=== PATIENT | male | born 1970 | race Caucasian/White ===

== ENCOUNTER 2017-12-30 08:05 | Inpatient (IN) | payer BC ==
[2017-12-30] MEDS ORDERED: MELATONIN 3 MG TAB PO PRN (08:52)
[2017-12-30] MEDS ORDERED: ONDANSETRON 4 MG/2 ML VIAL IVP PRN (08:52)
[2017-12-30] MEDS ORDERED: ACETAMINOPHEN 325 MG TAB PO PRN (08:52)
--- NOTE | 2017-12-30 09:08 | PDGENHP ---
History and Physical History and Physical: CC: Worsening left hip pain, sent by his primary care physician for assessment of abdominal mass HISTORY: This patient has not seen a doctor for some years and is generally healthy but presented to his primary care yesterday with complaint of worsening left hip and leg pain. There were some abnormalities found on examination and blood testing and is sent to the hospital now from primary care for further assessment and treatment. Other than hypertension since childhood this patient has been really quite healthy and takes no medicines. Around 2 years ago he started having some intermittent pain from his posterior left buttock that would go down the posterior leg occasionally below the knee to the upper calf, described as either an ache or a sharp pain worsened by sitting and worsened by certain movements. There was never any weakness or paresthesia or loss of sensation. He had no evaluation for this. Over the last 2 months he has had a worsening of this same pain and it has occasionally been associated with a numb sensation on the medial left thigh. In addition, he has developed a more steady and more severe pain in the anterior left hip/inguinal area. Has become increasingly difficult for him to walk any actually was using crutches when he went in to see his primary care yesterday. Additionally he tells me that he has had increasing difficulty urinating, sometimes having to push on his bladder to get urine to flow. He notes no discomfort passing urine, no discomfort in the bladder, and no blood in the urine. There is no history of kidney stones, prostate or bladder issues , or urologic instrumentation or catheterization Regarding his blood pressures, he says he was 1st noted to be hypertensive as a young child approximately age 5. He has not really followed physicians for this. He does not ever recall having treatment recommended for this but has not had his blood pressure checked in quite some time. He does say that whenever it has been checked it is usually high. Both parents are hypertensive. He does not use decongestants or stimulants. Formally he was able drinker of 1 bottle of wine daily but for a good while now has been using no alcohol. He states he has had no weight loss or gain, no fever symptoms, no skin sores or lesions, no oral ulcerations, no joint pains other than his hip and buttock area as above. 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 I have reviewed the list and ordered appropriate medicines. PHYSICAL EXAMINATION: Vital Signs: 190/100, pulse 102, normal respirations and temperature Examination: General: alert, oriented, good mentation, relaxed Skin: warm, dry, good color, no rash; I do not see any sign of skin cancers HEENT: normal Neck: no mass or jvd, no goiter Resps: relaxed Lungs: clear breath sounds Heart: Slightly tachycardic, regular, no murmur Abdomen: soft, nondistended, nontender, there is a large firm mass in the right lower quadrant of the abdomen which is nontender approximately 15 cm diameter which is visible at rest in easily palpable; there is a large, somewhat soft mass like palpable tissue at L inguinal area, nontender Genitalia all normal Upper Extremities: normal Lower Extremities: no edema, warm No Bleeding or bruising Neurologic: normal speech/language, 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 The mass palpable in the right lower quadrant was his bladder which is very distended with urine. There is also howeever a very large left pelvic mass appears to possibly be coming from the left iliac bone. This mass is fairly well-circumscribed other than where it has destroyed and appears contiguous with the left iliac bone. It protrudes up into the pelvis on the left pushes the bladder far to the right. It also protrudes underneath iliac ligament into the upper thigh where it compresses soft tissues to a large degree. A significant portion of the central part of the left iliac bone including the acetabular are completely destroyed by this mass. There is no evidence of other skeletal lesions, metastatic tumors, significant adenopathy. Bilateral hydronephrosis is present. I had the nurse do a bedside bladder ultrasound for which I was present. His bladder is extremely distended and accounts for the mass in his right lower quadrant of abdomen with a recorded volume 1170 cc. A Walker catheter was placed with immediate return of a very large volume greater than 1 L of clear yellow urine with some debris in it. There was subsequently some further drainage of clear yellow urine but he is now draining opaque gross hematuria. No clots were seen so far in the catheter is draining. I also ordered Doppler ultrasound of the left leg and I reviewed images with Dr. Celso Melissa. The patient does have evidence of DVT in the left leg. 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 * probable subacute urinary retention leading to bilateral hydronephrosis and renal failure * pain of cancer and limited ambulation due to the bone destruction mentioned above * normocytic anemia is likely due at least in large part to the renal failure but could have cancer nutritional causes to * the metabolic acidosis due to renal failure * gross hematuria could be due to sudden decompression of bladder, or other could be invasion of tumor mass into bladder * edema of left leg with DVT in left leg and probably also venous and/or lymphatic compression by mass * uncontrolled hypertension * History of hypertension since childhood, but not followed and it is entirely unclear what the course of the blood pressure has been in recent times * May be all chronic hypertension, but may be hypertension aggravated by his obstructive uropathy and renal failure and by his pain This is a very complex case anatomically. There is obvious destruction of bone in the left iliac. The pelvic ring appears intact but is at risk for becoming un intact. He has nothing for his femoral head to stand on at this time. In addition there is numbness in his medial left thigh indicating neurologic compromise, at least venous and lymphatic obstruction of the left leg with edema of the left leg and DVT in the left leg, with high risk for developing arterial compromise as well. He will need a surgical approach to his problems but this is beyond the complexity of what can be managed at this hospital, and should be referred to a center that specializes in this type of tumor and this type of anatomic complexity. I reviewed all of the above in great detail with the patient and his brother at the bedside. I have answered all their questions at this time. PLANS: * Inpatient admission hospital * Irrigation Walker catheter for the gross hematuria * Begin IV heparin for his DVT * Pain management * Management of his blood pressure with antihypertensives * Follow his renal function closely * IV hydration * Will review his case tonight with Dr. Christina Parson in with on-call orthopedist regarding appropriate referral for definitive management surgically and with medical treatment of his tumor I have reviewed the patient's case in detail with Dr. Conor Rehman and Conor Baeza I have reviewed the patient's past medical records as part of this assessment, including outpatient clinic records and laboratory data
[2017-12-30 12:55] LABS: PLATELET COUNT 172 10^3/uL (150-400)
--- NOTE | 2017-12-30 16:58 | ASMTCMCOM ---
CM Note CM Note Notes: Pt admitted with a lower abdominal/pelvic mass. He has been in a lot of pain and has been using crutches, he lives independently and works at [employer]. Dc needs are TBD DC Plan: TBD Date Signed: 12/30/2017 04:57 PM Electronically Signed By:Judy Cisneros RN
[2017-12-30] MEDS ORDERED: HEPARIN 10,000 UNIT/10 ML MDV (1,000 UNIT/ML) IVP PRN (18:55)
[2017-12-30] MEDS ORDERED: ZOLPIDEM TARTRATE 5 MG TAB PO PRN (19:09)
[2017-12-30 20:36] LABS: PLATELET COUNT 183 10^3/uL (150-400)
[2017-12-30] MEDS ORDERED: LORazepam 2 MG/ML INJ IVP ONE (20:36)
[2017-12-30] MEDS ORDERED: LIDOCAINE 2% JELLY 20 ML (UROJECT) UR ONE (20:45)
[2017-12-30 20:46] LABS: INR 1.15 (0.83-1.16); PROTIME(PATIENT) 14.9 SEC (12.0-15.0)
[2017-12-30] MEDS: oxyCODONE IR 5 MG TAB PO PRN (21:56)
[2017-12-30] MEDS: NS 1,000 ML IV SCH (21:57)
--- NOTE | 2017-12-30 21:58 | PDMN ---
Medical Necessity Medical necessity: Pt meets inpt criteria per MD order and MCG M-[id number], Renal Failure, 3 days. Est LOS>2MN for management of new acute renal failure, metabolic acidosis, normocytic anemia, abd/rectal mass eval, uncontrolled HTN, and worsening L hip pain requiring crutches. Pt presents w/ hip pain, HTN since admit (most recent BP 220/90), tachycardic HR 102, BUN 66, creat 3.3, H&H low at 9.8, 28.4, venous US shows LLE DVT. IV Heparin, IVF, pain control, PT eval pending, CT abd/pelvis pending, ongoing med nec inpt eval/treatment.
[2017-12-30] MEDS: HEPARIN/DEXTROSE 500 ML IV SCH (22:13)
[2017-12-31] MEDS: oxyCODONE IR 5 MG TAB PO PRN ×2 (02:41→12:37)
[2017-12-31] MEDS: NS 1,000 ML IV SCH (06:14)
--- NOTE | 2017-12-31 06:55 | CPEKG ---
Test Reason : OPEN Blood Pressure : / mmHG Vent. Rate : 096 BPM Atrial Rate : 096 BPM P-R Int : 180 ms QRS Dur : 089 ms QT Int : 345 ms P-R-T Axes : 058 057 200 degrees QTc Int : 436 ms Sinus rhythm Probable anteroseptal infarct, recent Lateral leads are also involved Confirmed by Juan Maria ([id number]) on 12/31/2017 6:55:43 AM Referred By: Confirmed By:Juan Maria
[2017-12-31] MEDS: HEPARIN/DEXTROSE 500 ML IV SCH (08:30)
[2017-12-31] MEDS ORDERED: hydrALAZINE 25 MG TAB PO ONE (09:16)
--- NOTE | 2017-12-31 10:59 | ASMTCMCOM ---
CM Note CM Note Notes: Pt is being transferred to [facility] for medical reasons. He will be going to [facility] [place], room 712-1. [facility] will be sending a Critical Care Team due to his need for continuous bladder irrigation and a Heparin drip. They will be arriving at 1:30PM. Medical records have been printed. EMTALA form is with Dr Canela. Nurse's information and Pt signature are needed. Date Signed: 12/31/2017 10:58 AM Electronically Signed By:Anupama Jimenes
[2017-12-31] MEDS ORDERED: METOPROLOL TARTRATE 50 MG TAB PO ONE (11:13)
--- NOTE | 2017-12-31 11:33 | PDDCSUM ---
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, causing destruction of left iliac bone and urinary outlet obstruction * urine retention 1170 cc requiring Walker catheterization due to above; resultant bilateral hydronephrosis * gross hematuria, may be due to Walker catheter, but would consider tumor invasion of bladder or other cause * renal failure with obstructive uropathy as most likely prominent cause, though high suspicion for underlying hypertensive nephropathy; -anemia and acidosis suggest some chronicity * deep venous thrombosis left leg * suspect peripheral nerve entrapment due to above with medial thigh numbness * pain of cancer due to findings above * severe hypertension, currently uncontrolled; patient reported history of untreated hypertension since age 5 with no recent medical evaluation or follow- up and no recent blood pressure data. Unclear if current blood pressures are his chronic baseline or if there increased by pain and anxiety of his current situation and medical conditions. CONSULTANTS: Dr. Carlotta Rehman Oncology PROCEDURES: Noncontrast CT scan of abdomen showing large left pelvic mass with multiple related complications described below Walker catheter placement, with subsequent removal and placement of an irrigation Walker catheter Ultrasound of left leg showing DVT HOSPITAL COURSE SUMMARY: This patient presented to his primary care physician with 2 months or thereabouts of worsening left hip pain increasing difficulty ambulating finally needing crutches along with slowed urine flow and needing to massage his bladder to initiate urination. In clinic there was notice of a right lower quadrant mass and a left inguinal mass. Blood tests were drawn showing anemia and renal failure. The patient was sent to the hospital for further assessment. At the time of presentation to the hospital the patient also mentioned that he was starting to notice some numbness on the medial side of the left thigh. 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 He was quite hypertensive on presentation. Otherwise healthy On examination here his vital signs showed severe hypertension and some mild intermittent tachycardia. He had a large rounded firm right lower quadrant abdominal mass which on bedside ultrasound turned out to be his bladder with 1170 CC fluid volume. There is also a rubbery consistency somewhat firm mass at the left groin which appeared to transverse under the inguinal ligament. Neither of these masses were tender, and the genitalia were normal. There is a palpable left pelvic mass on left lower quadrant exam and rectal exam. The patient had severe antalgic gait with severe pain with any attempted weight- bearing on the left leg located at the anterior left hip inguinal area. The left leg was mildly to moderately edematous from the thigh down to the foot. There is no evidence of arterial compromise and other than somewhat decreased tactile sensation of medial thigh no evidence of neurologic compromise. Otherwise fairly unremarkable initial examination. Initial blood test remarkable for creatinine 3.3 with low bicarbonate at 17 non anion gap acidosis , and normocytic hemoglobin 9.8. IV fluids were started. A Walker catheter was placed with rapid removal of greater than 1 L clear yellow urine with some yellowish debris. However approximately 20 min later he started having mild and then more prominent gross hematuria. This persisted and irrigation Walker catheter was then placed. At this time he still receiving bladder irrigation and has a slight blood tinge to the E fluent. All of this has been asymptomatic for him. He has remained with high blood pressures, and his hemoglobin has not decreased overnight. A noncontrast CT scan of the abdomen pelvis was obtained showing distention of the bladder which is shifted to the right lower quadrant and a very large left pelvic mass. This mass is either arising from or invading into the left iliac bone with destruction of most of the central portion of the left iliac bone including the entire acetabulum. Outside of that it has a moderately well circumscribed contour. It protrudes up into the pelvis pushing bowel and bladder aside. It also projects under the inguinal ligament into the upper thigh. On this noncontrast study is not possible to see the details of what is happening to the other normal structures in the upper thigh aside from compression. Ultrasound of the left leg was done and did confirm thrombus in the common femoral and femoral veins of the left leg. IV heparin was started for the DVT of the leg, and this has not worsened the urinary bleeding or caused other problems for him. This was 1st started on the evening of December 30 and the dose is still being titrated. 1st heparin level at 4:45 a.m. this morning 0.68. His hypertension remains severe having started some Norvasc last night. Given his renal dysfunction and his tachycardia, is elected at this time to add some beta-sunday with metoprolol, but he will need ongoing titration of blood pressure management. Given the story of hypertension uncontrolled and untreated since childhood, and the lack of any recent medical care or monitoring of blood pressure, is unknown whether this is his usual blood pressure was increased by the anxiety and pain of his current situation. The plan was to titrate the blood pressure somewhat slowly to avoid any rapid decreases if these are severely chronic numbers as long as he continues to resolve his renal dysfunction reasonably well and has no other acute hypertensive complications. His creatinine has improved to 2.7 today, hemoglobin stable. There have been no other complications. There been several extensive conversations with the patient and his family at the bedside about all the findings, treatment plans and other recommendations. From an anatomic standpoint his case is too complex to be managed at this hospital. He is felt to have risk of further injury with any weight-bearing and nothing to hold his femur to the pelvis, potential failure of the pelvic ring, potential arterial compromise to the left leg, and potential further neurologic injury with compromise to the left leg. He also has suspicion for sarcoma and should be seen at the Center with a medical oncology team appropriate for initial evaluation and treatment recommendations for that illness. At this point it is recommended that he be transferred to the care of Dr. Robert Ace. At [facility]. Apparently there is a bed available today and so he is to be transferred there this afternoon. The patient and family are in agreement with this plan. PENDING TEST RESULTS: None MEDICATION CHANGES: IV heparin drip has been started for treatment of DVT Oxycodone has been used intermittently for pain Ambien added for sleep Norvasc and metoprolol added for hypertension FOLLOW-UP PLAN: He is transferred today to [facility] for further assessment by oncologic surgery and Medical Oncology He is to be taken by BLS ambulance, with ongoing IV heparin drip and will have and irrigation Walker catheter in place Greater than 35 minutes bedside and care coordination time today
--- NOTE | 2017-12-31 11:34 | HOSPPROG ---
Hospitalist Progress Note Objective: Vital Signs Temp Pulse Resp BP Pulse Ox 36.4 C 84 19 200/90 H 99 12/31/17 07:17 12/31/17 07:17 12/31/17 07:17 12/31/17 10:22 12/31/17 07:17 Laboratory Results 12/31/17 04:45 12/31/17 04:45 12/30/17 12/31/17 01/01/18 06:59 06:59 06:59 Intake Total 3274 Output Total 9101 3054 Balance -3599 -3350 PT 14.9 SEC (12.0-15.0) 12/30/17 20:20 INR 1.15 (0.83-1.16) 12/30/17 20:20
--- NOTE | 2017-12-31 11:58 | PDIAF ---
- Diagnosis Diagnosis: Pelvic mass, renal failure, bladder outlet obstruction, iliac bone destruct Code Status: Full Code - Medication Management Discharge Medications: Medications to Continue on Transfer Acetaminophen [Tylenol 325mg (*)] 650 mg PO Q6 PRN tab 12/31/17 [Last Taken Unknown] Heparin/Dextrose [Heparin 50 Units/ml (Premix) (*)] 1,851 units IV CONT bag 11/10 [Last Taken Unknown] Melatonin [Melatonin 3 MG (*)] 3 mg PO HS PRN tab 12/31/17 [Last Taken Unknown] Metoprolol Tartrate [Lopressor 50 mg (*)] 50 mg PO BID tab 12/31/17 [Last Taken Unknown] Ondansetron HCl Pf [Zofran 4 mg Inj (*)] 4 mg IVP Q4 PRN vial 12/31/17 [Last Taken Unknown] Zolpidem Tartrate [Ambien 5MG (*)] 10 mg PO HS PRN tab 12/31/17 [Last Taken Unknown] amLODIPine BESYLATE [Norvasc 10 mg (*)] 10 mg PO DAILY tab 12/31/17 [Last Taken Unknown] oxyCODONE IR [Oxycodone Ir (*)] 10 mg PO Q4HRS PRN tab 12/31/17 [Last Taken Unknown] Discharge Medications: Refer to the Discharge Home Medication list for PRN reason. - Orders Diet Recommendation: sodium restricted, potassium restricted Diet Texture: Regular Texture Diet Activity/Weight Bearing Restrictions: None weight-bearing on left leg Additional Instructions: non weight bearing L leg - Follow Up Care Current Providers and Referrals: Ihsan Bills DO [Primary Care Provider] -
--- NOTE | 2017-12-31 12:52 | GCON ---
REASON FOR CONSULTATION: Pelvic mass. HISTORY: Mr. Conner is a previously healthy 47-year-old man who presented to the emergency room yesterday with increasing left hip pain. In retrospect, he has had some left hip pain for the past 2 years, which he attributed to sciatica or arthritis. He has also had some difficulty urinating. On admission , creatinine 3.[address] abdomen/pelvis demonstrated a large mass measuring approximately 20 cm in the left pelvis, appearing to involve the left superior pubic ramus as well as the left superior acetabulum. The mass contains some calcifications. The mass caused significant displacement of the bladder to the right with bladder outlet obstruction. Moderate bilateral hydronephrosis. Liver was normal on noncontrast scan. Left lower extremity Doppler demonstrated left common femoral DVT. He is on a heparin drip. PAST MEDICAL HISTORY: He has not seen a doctor in quite a long time. He reports hypertension since childhood, but has been on no medications. CURRENT OUTPATIENT MEDICATIONS: None. ALLERGIES: No known drug allergies. SOCIAL HISTORY: He is single. He lives in [place]. 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 His parents live in [place]. FAMILY HISTORY: He has 1 brother. REVIEW OF SYSTEMS: CONSTITUTIONAL: No fevers, chills, or weight loss. HEENT: No vision changes. CARDIOVASCULAR: No chest pain, palpitations, PND. He has noted some left lower extremity edema. GI: No changes in bowel habits. : As above. MUSCULOSKELETAL: As above. NEUROLOGIC: He has noted some numbness over the medial left thigh. He feels that the leg is weaker. No headaches. RESPIRATORY: No dyspnea, cough, pleurisy. PHYSICAL EXAM: VITAL SIGNS: Blood pressure 198/110, pulse 84, respirations 19 , 99% on room air. Temperature 36.4. GENERAL: Pleasant gentleman, alert, oriented. His parents are present. HEENT: No scleral icterus. CARDIOVASCULAR : Regular rate and rhythm. Diffuse edema. Mild edema in the left lower extremity. LUNGS: Clear to auscultation bilaterally. ABDOMEN: Mildly distended. There is firmness in the left groin along the pelvis. MUSCULOSKELETAL: He localizes pain to the left groin. NEUROLOGIC: Subjective decreased sensation over the medial left thigh. LABORATORY STUDIES: Yesterday, WBC 4.9, hemoglobin 10.1, platelets 183,000. BMP this morning demonstrates creatinine 2.7, down from 3.3. Normal LFTs. RADIOLOGIC STUDIES: Per HPI. No chest imaging. IMPRESSION: 1. Left pelvic mass with associated bony involvement (acetabulum, superior pubic ramus), suspicious for sarcoma (osteosarcoma, chondrosarcoma). 2. Acute renal failure due to bladder outlet obstruction. 3. Left lower extremity deep venous thrombosis due to compression from pelvic mass. 4. Anemia. Given the need for specialty orthopedic evaluation and the management of sarcoma , I spoke with Dr. Robert Ace with [facility] and arranged a transfer for Mr. Conner to [facility] for multi disciplinary sarcoma evaluation. If this is an osteosarcoma, initial chemotherapy would be appropriate. If this is a chondrosarcoma, initial surgical resection would be appropriate. I have discussed with Dr. Canela as well. We will not pursue further workup with MRI, biopsy, etc., here, as he will be promptly transferred to [facility]. /[id number]/MODL MTDD
[2017-12-31 13:03] VITALS: BP 210/90
[2017-12-31] MEDS ORDERED: METOPROLOL TARTRATE 50 MG TAB PO SCH (21:00)
== END 2017-12-31 13:49 | disposition short-term general hospital (02) | DRG 543 ==
LOC: F3E 09:57
PROVIDERS: ADMIT Internal Medicine; ATTEND Internal Medicine
PROC: 0T9B70Z Drainage of Bladder with Drainage Device, Via Natural or Artificial Opening (ICD-10-PCS; principal; 2017-12-30)
DX: C49.5 Malignant neoplasm of connective and soft tissue of pelvis (principal); I82.412 Acute embolism and thrombosis of left femoral vein; E87.2 Acidosis; R33.9 Retention of urine, unspecified; R00.0 Tachycardia, unspecified; G89.3 Neoplasm related pain (acute) (chronic); D64.9 Anemia, unspecified; R31.0 Gross hematuria; N19 Unspecified kidney failure; I12.9 Hypertensive chronic kidney disease with stage 1 through stage 4 chronic kidney disease, or unspecified chronic kidney disease; G58.9 Mononeuropathy, unspecified
CPT/HCPCS: 84154-90; 85520-90; J1644

== ENCOUNTER 2018-02-11 11:28 | Inpatient (IN) | payer BC ==
[2018-02-11] MEDS ORDERED: oxyCODONE IR 5 MG TAB PO PRN (15:53)
[2018-02-11] MEDS ORDERED: BISACODYL 10 MG SUPP PR PRN (17:33)
[2018-02-11] MEDS ORDERED: ONDANSETRON DISINTEGRATING 4 MG TAB PO PRN (17:33)
[2018-02-11] MEDS ORDERED: MAGNESIUM HYDROXIDE 30 ML UDCUP PO PRN (17:33)
--- NOTE | 2018-02-11 18:00 | GHP ---
POST ADMISSION PHYSICIAN EVALUATION AND REHABILITATION TREATMENT PLAN. DATE OF ADMISSION: 02/11/2018 DATE OF EVALUATION: 02/11/2018. TIME OF EVALUATION: 1425. REFERRING FACILITY: [facility]. Referring physician is Dr. Ace. IMPAIRMENT GROUP: [id number]. DATE OF ONSET: 01/31/2018. CONSULTING PHYSICIANS: Internal Medicine, interventional radiology, surgery, urology, and vascular surgery. REHABILITATION DIAGNOSIS: Debility, status post left hemipelvectomy. ETIOLOGIC DIAGNOSIS: Unilateral lower limb above the knee. DATE OF SURGERY: 02/02/2018. HISTORY OF PRESENT ILLNESS: This patient developed an obstructing pelvic chondrosarcoma, which caused urinary obstruction and compression of the bladder and rectum and post obstructive renal failure. He reports that his symptoms 1st began with some hip discomfort approximately a month and a half ago and an x -ray at that time showed some bony abnormality, and he was told that he would need a hip replacement eventually. Subsequently, the chondrosarcoma expanded sufficiently to push the bladder to the right and cause obstructive symptoms. Prior to surgery he had a left ureteral stent placed to help identify the ureter during the surgery and had a left nephrostomy tube placed. He had embolization of the left iliac vein on 02/01/2018, to decrease bleeding during the surgery and then on 02/02/2018, he had the left hemipelvectomy. His spermatic cord on the left was damaged in the surgery and he had a left orchiectomy as well. Postoperatively, he had a wound VAC which was discontinued. There was an epidural catheter for pain control, which he reports was accidentally lost on 02/05/2018. He failed a voiding trial on 02/07, and Walker was replaced the same day. There was concern about a neurogenic bladder. He had anemia prior to surgery and he required multiple transfusions during and after surgery. He had a history of a left leg DVT for which he had been on treatment dose Lovenox. After his hemipelvectomy, the clot had been removed and he was continued on prophylactic dose enoxaparin. There had been an inferior vena cava filter placed which was removed on 2017. He has 2 SURENDRA drains, removal of which can be done when output is less than 30 cc for each drain on 2 consecutive days. He was otherwise medically stabilized, participating in therapies and appropriate for inpatient rehabilitation. STUDIES AND LABS DURING HIS STAY: I do not have easy access to a complete list. Prior to surgery he had anemia with a hemoglobin of 8.6 and hematocrit of 26.8. Basic metabolic profile prior to surgery was overall normal. He had a slight elevation of BUN at 21, creatinine was 1.1, and estimated GFR was greater than 60. PT and INR were normal. After surgery, venous blood lactate was normal at less than 0.3. Other labs on 02/03/2018, were arterial blood gases consistent with ventilator management. On 02/04/2018, serum chemistries showed a very slightly low sodium of 135, chloride was slightly high at 109, and carbon dioxide was low at 21. There was no anion gap. Renal function was normal. CBC showed a hemoglobin of 8.4 and hematocrit of 25.6. Coagulation studies showed a slightly long protime at 17. The prothrombin time was normal at 32.2. Hepatitis B and HIV testing were negative. Most recent labs appear to be from February 09. Sodium was low at 133. He had an elevated BUN of 32 and a creatinine of 1, consistent with some dehydration. CBC showed hemoglobin of 9.8 and hematocrit of 30. Platelet count was normal. PRECAUTIONS: He is a fall risk. ACTIVE COMORBIDITIES: He has no active tier 1, tier 2 or tier 3 comorbidities. PAST MEDICAL HISTORY: 1. DVT 12/2017 with IVC filter placed 01/05/2018. 2. 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 3. Hypertension. 4. Acute kidney injury. PAST SURGICAL HISTORY: He has not had previous surgeries. PRE-HOSPITAL MEDICATIONS: I do not have a list. ADMISSION MEDICATIONS: 1. Acetaminophen 650 mg p.o. q.6 hours p.r.n. 2. Amlodipine 10 mg p.o. daily. 3. Celecoxib 200 mg p.o. twice daily. 4. Enoxaparin 40 mg subcutaneous daily. 5. Gabapentin 200 mg p.o. three times daily. 6. Hydralazine 50 mg p.o. three times daily. 7. Morphine extended release 15 mg twice daily. 8. Oxycodone 10-20 mg p.o. q.4 hours p.r.n. ALLERGIES: There are no known drug allergies. PSYCHOSOCIAL HISTORY: He is single. He lives alone in a multi level house with multiple stairs. There are 6 stairs to enter. 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 He is a nonsmoker. He has used occasional alcohol but has not had any substance abuse habits. FAMILY HISTORY: Noncontributory. REVIEW OF SYSTEMS: He reports that his pain is primarily incisional. He had discomfort after he arrived on the unit and had a dose of oxycodone. He denies fevers, chills, pain other than incisional pain, cough, dyspnea, nausea, vomiting, constipation, or diarrhea. He has a Walker in place. He denies weakness, numbness or tingling of the extremities. He denies joint pain or joint swelling. He is not aware of skin breakdown or rashes. Otherwise, a 10- point review of systems is negative. PHYSICAL EXAM: VITAL SIGNS: Blood pressure is 133/90, heart rate is 91, respiratory rate is 16, oxygen saturation is 97% on room air. Temperature is 36.6 degrees centigrade. His weight is 79.2 for a body mass index of 23.7. GENERAL: This is a well-nourished, well-developed, slightly overweight appearing man sitting up in bed dressed in street clothes, cooperative and in no acute distress. HEENT: Extraocular movements are intact. Pupils are equal , round, reactive to light. Mucous membranes are moist. Dentition is in good condition. He has an uncrowded airway, Mallampati class 2. NECK: Supple. HEART: There is a regular rate and rhythm with no murmurs, rubs, or gallops. LUNGS: Clear to auscultation bilaterally. ABDOMEN: Soft, nontender, nondistended with normoactive bowel sounds. There is a firm nodule palpable approximately 2-3 cm subcutaneous or superficial intraabdominal to the right of the umbilicus. NEUROLOGIC: He is alert and oriented x3. Cranial nerves 2-12 are grossly intact. There is no focal weakness and sensation is intact to light touch. He appears to have mild word-finding difficulties and slow processing. SKIN: There is an extensive sutured incision across the left residual hemipelvis. The anterolateral part is under a bandage which was changed today and will be changed again every other day, so it was not inspected. There is no drainage in the incision. There is very mild erythema along the incision. There is no purulence. There is a capped nephrostomy tube in the left flank, and there are 2 drains in the left abdomen with serosanguineous drainage. CURRENT LEVEL OF FUNCTION PER PREADMISSION SCREEN: He was on a regular diet. He had modified independence for grooming and for toileting. He was continent of bowel. He could transfer with a [id number] with contact guard to a walker with voice cues for safety. He could do a stand pivot transfer with cues for safe transfer technique. He was using a front-wheeled walker or forearm crutches. He may require a seating system to be able to sit in office chair upon return to work. Balance required contact guard to minimal assist when he was standing. Endurance was fair to good. He was able to ambulate 75 feet to 100 feet with a front-wheeled walker and contact guard assist with a slow nathaniel. He had 1 loss of balance noted. He was able to self correct. He needed voice cues as he attempted to mobilize prior to equipment management, which at that time were wound VAC drains, etc. He was able to ambulate 200 feet with forearm crutches and contact guard assist of 2 people. Communication was considered to be normal. Regarding cognition, he was noted to be impulsive with mobility and requiring cues for setup of equipment and environment. He was noted to have decreased insight into his impairments. On the current exam, there are no significant changes from the preadmission screen. IMPRESSION: This is a 47-year-old man who required a hemipelvectomy due to an obstructing chondrosarcoma mass in his left pelvis. He has come through the surgery remarkably well and is otherwise healthy other than hypertension. It is expected that he will improve fairly rapidly in his function towards return to home. Multiple stairs to enter the house and multiple stairs within the house are a barrier to discharge. He has clear wound management orders. The dressing is to be with Aquacel to part of the wound with superficial epidermolysis is to be changed every other day. Otherwise, he should have Silvadene to the incision daily. The drains are to be stripped and recorded daily. He has hypertension and he has needs for pain control. His goal is to complete a rehabilitation stay and then return home with home health services and family support. For a safe discharge, he will need to be independent for eating, grooming, and bed mobility. He will need to have insight into his deficits and the impact on function. He will need to use appropriate equipment and have environment set up safely for transfers and mobilization. He will need to achieve modified independence for transfers, dressing, bathing and ambulation with the least restrictive device on level and unlevel surfaces. He will need to be able to prepare a meal with modified independence. He may need assistance for household management, and shopping. He will need to have a good understanding and independence with pressure relief. He may need a seating device. He will have therapy with physical therapy and occupational therapy for 90 minutes per day per discipline on 5-7 days of the week. His expected duration of stay is 7-10 days. It is expected that upon discharge he will continue to benefit from home health services including nursing, occupational therapy, and physical therapy. Additionally, he will benefit from an amputation support group. PLAN: 1. Debility, status post hemipelvectomy, PT and OT to optimize mobility and activities of daily living. 2. Pain management. Continue medications ordered upon hospital discharge with morphine extended release 15 mg p.o. twice daily and oxycodone 10-20 mg p.o. q.4 hours p.r.n. Acetaminophen is also ordered at 650 mg q.6 hours p.r.n. Pain medications can be adjusted or tapered as needed during his stay. He is also on celecoxib 200 mg twice daily. 3. Hypertension. Continue amlodipine and hydralazine. If possible, hydralazine will be tapered and discontinued. If he continues to need more than 1 blood pressure medication, a first-line medication such as an SHANTEL inhibitor, an ARB, or a diuretic could be substituted for hydralazine. 4. Walker catheter with possible neurogenic bladder and presence of nephrostomy tube. He will follow up with Urology/ It is scheduled for 03/05/2018, at the [facility]. 5. Prophylaxis. The DVT that he had suffered prior to surgery was removed with his left leg and he is on prophylactic anticoagulation with enoxaparin. 6. Followup. He has followup scheduled with orthopedic surgeon, Dr. Ace on 02/23/2018, and with Urology 03/05/2018. 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 He also reports that the surgeon felt that he excised the whole tumor with clean margins. /[id number]/MODL MTDD
[2018-02-11] MEDS: oxyCODONE IR 5 MG TAB PO PRN (20:19)
[2018-02-11] MEDS: SILVER SULFADIAZINE TP SCH (21:22)
[2018-02-11] MEDS: SENNOSIDES/DOCUSATE SODIUM TAB PO SCH (21:30)
[2018-02-11] MEDS: morphINE SR 15 MG TAB PO SCH (21:31)
[2018-02-11] MEDS: GABAPENTIN 100 MG CAP PO SCH (21:44)
[2018-02-11] MEDS: hydrALAZINE 25 MG TAB PO SCH (21:46)
[2018-02-12] MEDS: oxyCODONE IR 5 MG TAB PO PRN ×5 (02:02→21:32)
[2018-02-12] MEDS: ACETAMINOPHEN 325 MG TAB PO PRN (06:12)
[2018-02-12] MEDS: ENOXAPARIN 40 MG/0.4 ML SYR SC SCH (08:52)
[2018-02-12] MEDS: FERROUS SULFATE 325 MG TAB PO SCH (08:54)
[2018-02-12] MEDS: MULTIVITAMINS 1 EACH TAB PO SCH (08:54)
[2018-02-12] MEDS: POLYETHYLENE GLYCOL 3350 17 GM PKT PO SCH (08:54)
[2018-02-12] MEDS: SENNOSIDES/DOCUSATE SODIUM TAB PO SCH (08:54)
[2018-02-12] MEDS: morphINE SR 15 MG TAB PO SCH ×2 (08:54→21:37)
[2018-02-12] MEDS: hydrALAZINE 25 MG TAB PO SCH ×3 (08:56→21:36)
--- NOTE | 2018-02-12 09:22 | SOAPPROG ---
SOAP Progress Note Assessment/Plan: Assessment 1.STATUS POST HONG PELVECTOMY. PT AND OT TO OPTIMIZE MOBILITY AND ACTIVITIES OF DAILY LIVING. 2 PAIN MANAGEMENT. MEDICATIONS UPON DISCHARGE MORPHINE EXTENDED RELEASE 15 MG and OXYCODONE 10-20 MG Q.4 HOURS P.R.N. ACETAMINOPHEN IS ORDERED AT 650 MG Q.6 HOURS P.R.N.. PAIN MEDICATIONS CAN BE ADJUSTED OR TAPERED NEEDED DURING HIS STAY. ALSO ON CELECOXIB 200 MG TWICE DAILY. 3. HYPERTENSION CONTINUE AMLODIPINE AND HYDRALAZINE. HYDRALAZINE WILL BE TAPERED AND DISCONTINUED. IF HE CONTINUES TO NEED MORE THAN 1 BLOOD PRESSURE MEDICATION, FIRST-LINE MEDICATION SUCH AN SHANTEL INHIBITOR, AND ARB OR DIURETIC COULD BE SUBSTITUTED FOR HYDRALAZINE 4. ESCOBEDO CATHETER WITH POSSIBLE NEUROGENIC BLADDER AND PRESENCE OF NEPHROSTOMY TUBE. HE WILL WITH UROLOGY. THIS IS SCHEDULED FOR 03/05/2018 AT THE [facility] 5. DVT PROPHYLAXIS.THE DVT HAS SUFFERED PRIOR SURGERY WAS REMOVED HIS LEFT LEG AND HE IS ON PROPHYLACTIC ANTICOAGULATION WITH ENOXAPARIN 6. HE HAS FOLLOW-UP WITH HIS ORTHOPEDIC SURGEON ON 02/23/2018 AND UROLOGOGY ON 03/05/18. HE HAS A LOW-GRADE SARCOMA IT IS UNLIKELY HE WILL REQUIRE ONCOLOGY HAS RADIATION AND CHEMOTHERAPY HELPFUL ROLLED PLAY. HE ALSO REPORTS THAT THE SURGEON FELT THAT HE WOULD EXCISE THE WHOLE TUMOR WITH CLEAN MARGINS. 7. LABORATORY WORK. CBC AND BMP ARE PENDING THIS MORNING. WILL CHECK LATER TODAY. Subjective: HE REPORTS LESS THAN OPTIMUM PAIN CONTROL DUE TO THE P.R.N. SCHEDULE OF THE OXYCODONE. HE REPORTS THAT HE HAS REGULAR BOWEL MOVEMENTS BUT HAS HAD INTERMITTENT DIARRHEA WELL. HE MENTIONS THAT THE NURSES SUGGESTED A SUPPOSITORY. HE DOES NOT REPORT SIGNIFICANT LEFT HONG PELVIC PAIN. HE REPORTS THAT HE IS AMBULATING WITH A LOBSTER AND CRUTCHES WITHOUT MUCH DIFFICULTY. Objective: Vital Signs Temp Pulse Resp BP Pulse Ox 36.8 C 81 16 140/70 H 95 02/12/18 06:16 02/12/18 06:16 02/12/18 06:16 02/12/18 08:56 02/12/18 06:16 02/11/18 02/12/18 02/13/18 05:59 05:59 05:59 Intake Total 1150 Output Total 2300 1100 Balance -1150 -1100 Physical Exam - Physical Exam General Appearance: WD/WN, alert, no apparent distress Respiratory: lungs clear, normal breath sounds Abdomen: non-tender, soft Male Genitalia: other (ESCOBEDO CATHETER IN PLACE.) Skin: other (LEFT HEMIPELVECTOMY INCISION SITES ARE HEALING WELL, NO DRAINAGE ERYTHEMA OR INDURATION. NEPHROSTOMY TUBE INSERTION SITE WITHOUT ERYTHEMA, INDURATION OR DRAINAGE.) Extremities: other (NO RIGHT LOWER EXTREMITY SWELLING. RIGHT CALF NONTENDER.), No swelling, No Carole's sign Neuro/Psych: other (PERFORMS WHEELCHAIR TO BED TRANSFER WITHOUT MUCH DIFFICULTY. GOES FROM SIT TO SUPINE BACK TO SIT POSITION IN BED WITHOUT MUCH DIFFICULTY.)
[2018-02-12 09:52] LABS: PLATELET COUNT 354 10^3/uL (150-400)
[2018-02-12] MEDS: SILVER SULFADIAZINE TP SCH ×2 (11:08→21:38)
[2018-02-12] MEDS: ASCORBIC ACID 250 MG TAB PO SCH (16:24)
[2018-02-12] MEDS ORDERED: PNEUMOCOCCAL 0.5ML VACCINE VIAL IM ONE (16:51)
[2018-02-12] MEDS: GABAPENTIN 100 MG CAP PO SCH (21:34)
[2018-02-13] MEDS: SENNOSIDES/DOCUSATE SODIUM TAB PO SCH ×4 (00:30→21:22)
[2018-02-13] MEDS: ACETAMINOPHEN 325 MG TAB PO PRN ×2 (05:01→22:09)
[2018-02-13] MEDS: oxyCODONE IR 5 MG TAB PO PRN ×4 (05:02→22:09)
[2018-02-13] MEDS: ENOXAPARIN 40 MG/0.4 ML SYR SC SCH (08:34)
[2018-02-13] MEDS: morphINE SR 15 MG TAB PO SCH ×2 (08:34→21:21)
[2018-02-13] MEDS: POLYETHYLENE GLYCOL 3350 17 GM PKT PO SCH (08:34)
[2018-02-13] MEDS: hydrALAZINE 25 MG TAB PO SCH ×3 (08:35→21:21)
[2018-02-13] MEDS: FERROUS SULFATE 325 MG TAB PO SCH (08:36)
[2018-02-13] MEDS: MULTIVITAMINS 1 EACH TAB PO SCH (08:37)
[2018-02-13] MEDS: ASCORBIC ACID 250 MG TAB PO SCH (08:38)
[2018-02-13] MEDS: SILVER SULFADIAZINE TP SCH ×2 (08:38→22:10)
--- NOTE | 2018-02-13 08:54 | SOAPPROG ---
SOAP Progress Note Assessment/Plan: Assessment 1.STATUS POST HONG PELVECTOMY. PT AND OT TO OPTIMIZE MOBILITY AND ACTIVITIES OF DAILY LIVING. 2 PAIN MANAGEMENT. HAD LONG DISCUSSION WITH PATIENT TODAY REGARDING PAIN MEDICATIONS SCHEDULING. REVIEWED THAT THE MORPHINE SR 15 MG HE RECEIVES TWICE A DAY ON A REGULAR SCHEDULE. OXYCODONE 10-20 MG IS EVERY 4 HR NEEDED AND REVIEWED WITH PATIENT THAT THIS MEANS HE HAS TO ASK FOR IT. HAVE SUGGESTED THAT HE KEEP A DAILY SCHEDULE TO WHEN HE 1ST RECEIVES PAIN MEDICATIONS IN THE MORNING AND THEN HE WILL KNOW WHEN HE CAN RECEIVE PAIN MEDICATION ON 4 HR INTERVALS THEREAFTER. ALSO DISCUSSED WITH HIM THAT I WOULD NOT ADVOCATE HAVING NURSING WAKE HIM UP ASK HIM IF HE NEEDS PAIN MEDICATIONS. 3. HYPERTENSION. BLOOD PRESSURE THIS MORNING 148/80 CONTINUE AMLODIPINE AND HYDRALAZINE. HYDRALAZINE WILL BE TAPERED AND DISCONTINUED. IF HE CONTINUES TO NEED MORE THAN 1 BLOOD PRESSURE MEDICATION, FIRST-LINE MEDICATION SUCH AN SHANTEL INHIBITOR, AND ARB OR DIURETIC COULD BE SUBSTITUTED FOR HYDRALAZINE 4. ESCOBEDO CATHETER WITH POSSIBLE NEUROGENIC BLADDER AND PRESENCE OF NEPHROSTOMY TUBE. HE WILL WITH UROLOGY. THIS IS SCHEDULED FOR 03/05/2018 AT [facility] 5. DVT PROPHYLAXIS. LEFT LOWER EXTREMITY DVT HE HAD PRIOR TO SURGERY IS NO LONGER AN ISSUE STATUS POST LEFT HEMIPELVECTOMY. HE IS ON PROPHYLACTIC ANTICOAGULATION WITH ENOXAPA 6. HE HAS FOLLOW-UP WITH HIS ORTHOPEDIC SURGEON ON 02/23/2018 AND UROLOGOGY ON 03/05/18. HE HAS A LOW-GRADE SARCOMA IT IS UNLIKELY HE WILL REQUIRE ONCOLOGY HAS RADIATION AND CHEMOTHERAPY HELPFUL ROLLED PLAY. HE ALSO REPORTS THAT THE SURGEON FELT THAT HE WOULD EXCISE THE WHOLE TUMOR WITH CLEAN MARGINS. 7. BOWEL PROGRAM. HE HAS NOT HAD A BOWEL MOVEMENT IN 2 DAYS AND THEREFORE WILL INCREASE SENOKOT S TO 1-2 A.M. AND P.M.. NURSING STATES THAT THEY WILL GIVE HIM A DULCOLAX SUPPOSITORY THIS MORNING. 8. LABORATORY WORK. CBC 7.0, HEMOGLOBIN 8.9, HEMATOCRIT 28. SODIUM 137, POTASSIUM 4.6 BUN/CREATININE 29/0.9 02/13/18 08:56 Subjective: HE HAD SOME QUESTIONS REGARDING THE SCHEDULING OF THE OXYCODONE. HE REPORTS THAT HIS PAIN LEVEL IS OTHERWISE WELL CONTROLLED AND IS NOT INTERFERING WITH HIS THERAPY SESSIONS OR SLEEP. Objective: Vital Signs Temp Pulse Resp BP Pulse Ox 36.8 C 82 16 148/80 H 95 02/13/18 05:53 02/13/18 05:53 02/13/18 05:53 02/13/18 08:37 02/13/18 05:53 Laboratory Results 02/12/18 06:45 02/12/18 06:45 02/12/18 02/13/18 02/14/18 05:59 05:59 05:59 Intake Total 1150 3930 Output Total 2300 4458 Balance -1150 -528 Physical Exam - Physical Exam General Appearance: WD/WN, alert, no apparent distress Respiratory: lungs clear, normal breath sounds Cardiac/Chest: regular rate, rhythm, No edema Abdomen: non-tender, soft, other (HYPOACTIVE BOWEL SOUNDS) Male Genitalia: other (ESCOBEDO CATHETER IN PLACE) Skin: normal color, warm/dry, other (HEMIPELVECTOMY INCISION SITES HEALING WELL AND WITHOUT DRAINAGE, ERYTHEMA OR INDURATION.) Extremities: No swelling, No Carole's sign
[2018-02-13] MEDS: GABAPENTIN 100 MG CAP PO SCH (21:22)
[2018-02-14] MEDS: ACETAMINOPHEN 325 MG TAB PO PRN (05:49)
[2018-02-14] MEDS: oxyCODONE IR 5 MG TAB PO PRN ×4 (05:49→20:06)
[2018-02-14] MEDS: ENOXAPARIN 40 MG/0.4 ML SYR SC SCH (08:18)
[2018-02-14] MEDS: MULTIVITAMINS 1 EACH TAB PO SCH (08:18)
[2018-02-14] MEDS: SENNOSIDES/DOCUSATE SODIUM TAB PO SCH ×2 (08:18→20:02)
[2018-02-14] MEDS: hydrALAZINE 25 MG TAB PO SCH ×3 (08:19→21:05)
[2018-02-14] MEDS: morphINE SR 15 MG TAB PO SCH ×2 (08:19→20:03)
[2018-02-14] MEDS: FERROUS SULFATE 325 MG TAB PO SCH (08:19)
[2018-02-14] MEDS: POLYETHYLENE GLYCOL 3350 17 GM PKT PO SCH (08:19)
[2018-02-14] MEDS: SILVER SULFADIAZINE TP SCH ×2 (08:20→20:07)
--- NOTE | 2018-02-14 09:33 | SOAPPROG ---
SOAP Progress Note Assessment/Plan: Assessment: Debility, status post hemipelvectomy, PT and OT to optimize mobility and activities of daily living. * Initial functional independence measure 90 on 02/14/2018. Independent with bed mobility and with squat pivot transfers. Ambulated 150 ft with contact guard to minimal assist using bilateral forearm crutches. He shows occasional loss of balance. He climbed and descended 12 stairs with bilateral crutches and contact guard assist. He accomplished a car transfer with standby assist. Decreased endurance and decreased standing balance. Staff has safety concerns regarding impulsive movements. He required supervision and setup for upper body and lower body dressing. Grooming and hygiene were done standing. She bathed seated by sponge bath at the sink. Pain management. Continue medications ordered upon hospital discharge with morphine extended release 15 mg p.o. twice daily and oxycodone 10-20 mg p.o. q.4 hours p.r.n. Acetaminophen is also ordered at 650 mg q.6 hours p.r.n. Pain medications can be adjusted or tapered as needed during his stay. He is also on celecoxib 200 mg twice daily. Hypertension. Continue amlodipine and hydralazine. If possible, hydralazine will be tapered and discontinued. If he continues to need more than 1 blood pressure medication, a first-line medication such as an SHANTEL inhibitor, an ARB, or a diuretic could be substituted for hydralazine. Walker catheter with possible neurogenic bladder and presence of nephrostomy tube. He will follow up with Urology 03/05/2018, at the [facility]. Prophylaxis. The DVT that he had suffered prior to surgery was removed with his left leg and he is on prophylactic anticoagulation with enoxaparin. DISPOSITION: Attended staffing, 15 min. Lives alone in a multilevel house with multiple steps to enter. Intends to return to work. Needs to achieve full functional independence. Discharge date set for 02/18/2018. FOLLOW-UP. He has followup scheduled with orthopedic surgeon, Dr. Ace on , and with Urology 03/05/2018. 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 He also reports that the surgeon felt that he excised the whole tumor with clean margins. 02/14/18 12:06 Subjective: No complaints. Pain is adequately controlled but he wants oxycodone 20 mg every 4 hr while he is awake. He goes approximately 7 hr overnight between doses. No fevers or chills, no cough or dyspnea. Bowels are moving. Objective: Vital Signs Temp Pulse Resp BP Pulse Ox 36.4 C 80 16 166/90 H 97 02/14/18 06:42 02/14/18 06:42 02/14/18 06:42 02/14/18 08:19 02/14/18 06:42 Laboratory Results 02/12/18 06:45 02/12/18 06:45 02/13/18 02/14/18 02/15/18 05:59 05:59 05:59 Intake Total 3930 1240 500 Output Total 4458 1400 1558 Balance -523 -160 -1196 - Time Spent With Patient Time Spent With Patient: Greater than 35 min floor time today, including more than 50% of time in coordination of care during staffing meeting, and counseling patient. Physical Exam - Physical Exam General Appearance: WD/WN, alert, no apparent distress Respiratory: No respiratory distress, No accessory muscle use Skin: normal color, warm/dry, other (Incision assessed including area of epidermolysis under dressing. Healing well, no drainage, minimal eschar, no dehiscence. Granulation tissue over epidermal lysis area.) Neuro/Psych: no motor/sensory deficits, alert, normal mood/affect, oriented x 3 ICD10 Worksheet Patient Problems: Problems Problem Status Onset AMPUTATION PELVIS Acute
[2018-02-14] MEDS: CEPHALEXIN 500 MG CAP PO SCH ×2 (11:38→17:41)
[2018-02-14] MEDS: ASCORBIC ACID 250 MG TAB PO SCH (17:52)
[2018-02-14] MEDS: GABAPENTIN 100 MG CAP PO SCH (20:02)
[2018-02-15] MEDS: CEPHALEXIN 500 MG CAP PO SCH ×4 (00:14→17:56)
[2018-02-15] MEDS: oxyCODONE IR 5 MG TAB PO PRN ×5 (00:16→20:57)
[2018-02-15] MEDS: FERROUS SULFATE 325 MG TAB PO SCH (08:26)
[2018-02-15] MEDS: POLYETHYLENE GLYCOL 3350 17 GM PKT PO SCH (08:26)
[2018-02-15] MEDS: ENOXAPARIN 40 MG/0.4 ML SYR SC SCH (08:26)
[2018-02-15] MEDS: SENNOSIDES/DOCUSATE SODIUM TAB PO SCH ×2 (08:26→22:02)
[2018-02-15] MEDS: morphINE SR 15 MG TAB PO SCH ×2 (08:26→22:05)
[2018-02-15] MEDS: MULTIVITAMINS 1 EACH TAB PO SCH (08:26)
[2018-02-15] MEDS: hydrALAZINE 25 MG TAB PO SCH (08:29)
[2018-02-15] MEDS: SILVER SULFADIAZINE TP SCH ×2 (08:31→22:05)
[2018-02-15] MEDS: ASCORBIC ACID 500 MG TAB PO SCH (08:45)
--- NOTE | 2018-02-15 12:29 | PDOREHIP ---
Admission [facility] - Admission - 3 Day Assessment Period Admission Date/Day 1: 02/11/18 Day 2: 02/12/18 Day 3: 02/13/18 - Active Diagnoses Comorbidities and Co-existing Conditions at Admission: 69822. None of the Above - Skin Conditions Unhealed Pressure Ulcer (1 or more/Stage 1 or >)-Admission: 0. No # Stage 1 Pressure Ulcers-Admission: 0 # Stage 2 Pressure Ulcers-Admission: 0 # Stage 3 Pressure Ulcers-Admission: 0 # Stage 4 Pressure Ulcers-Admission: 0 # Unstageable Pressure Ulcers (Non-remove Dress)-Admission: 0 # Unstageable Pressure Ulcers (Slough/Eschar)-Admission: 0 # Unstageable Pressure Ulcers (Deep Tissue Injury)-Admission: 0 Discharge [facility] - Discharge - 3 Day Assessment Period 2 Days Prior to Anticipated Discharge Date: 02/16/18 1 Day Prior to Anticipated Discharge Date: 02/17/18 Anticipated Discharge Date: 02/18/18
--- NOTE | 2018-02-15 14:39 | SOAPPROG ---
SOAP Progress Note Assessment/Plan: Assessment: Debility, status post hemipelvectomy. * Initial functional independence measure 90 on 02/14/2018. Independent with bed mobility and with squat pivot transfers. Ambulated 150 ft with contact guard to minimal assist using bilateral forearm crutches. He shows occasional loss of balance. He climbed and descended 12 stairs with bilateral crutches and contact guard assist. He accomplished a car transfer with standby assist. Decreased endurance and decreased standing balance. Staff has safety concerns regarding impulsive movements. He required supervision and setup for upper body and lower body dressing. Grooming and hygiene were done standing. He bathed seated by sponge bath at the sink. * Continue PT and OT to optimize mobility and activities of daily living. Pain management. Continue medications ordered upon hospital discharge with morphine extended release 15 mg p.o. twice daily and oxycodone 10-20 mg p.o. q.4 hours p.r.n. Acetaminophen is also ordered at 650 mg q.6 hours p.r.n. Pain medications can be adjusted or tapered as needed during his stay. He is also on celecoxib 200 mg twice daily. Hypertension. Continue amlodipine and hydralazine. Discontinue hydralazine and initiate losartan 25 mg at HS. Expect losartan to be titrated and entire dose could probably be given in the morning. Continue to monitor. Walker catheter with possible neurogenic bladder and presence of nephrostomy tube. He will follow up with Urology 03/05/2018, at the [facility]. Wound management. Examined directly on 02/14/2018. Appears to be healing without complication. Staff report that patient has some resistance regarding complying with wound care, specifically with placement of drains and whether they are in contact with his incisions. Continue dressing change every other day per wound care orders. Continue drains. The may be discontinued when output is 30 cc or less on 2 consecutive days. Prophylaxis. The DVT that he had suffered prior to surgery was removed with his left leg and he is on prophylactic anticoagulation with enoxaparin. DISPOSITION: Lives alone in a multilevel house with multiple steps to enter. Intends to return to work. Needs to achieve full functional independence. Discharge date set for 02/18/2018. FOLLOW-UP. He has followup scheduled with orthopedic surgeon, Dr. Ace on , and with Urology 03/05/2018. 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 He also reports that the surgeon felt that he excised the whole tumor with clean margins. 02/15/18 14:42 Subjective: No complaints. Pain is adequately controlled. Sleeping well. No fevers or chills. Objective: Vital Signs Temp Pulse Resp BP Pulse Ox 36.8 C 88 16 146/78 H 95 02/15/18 06:17 02/15/18 06:17 02/15/18 06:17 02/15/18 08:29 02/15/18 06:17 Laboratory Results 02/12/18 06:45 02/12/18 06:45 02/14/18 02/15/18 02/16/18 05:59 05:59 05:59 Intake Total 1240 900 590 Output Total 1540 4218 300 Balance -300 -3318 290 Physical Exam - Physical Exam General Appearance: WD/WN, alert, no apparent distress Respiratory: No respiratory distress, No accessory muscle use Cardiac/Chest: edema (Trace right pretibial) Skin: normal color, warm/dry Neuro/Psych: no motor/sensory deficits, alert, normal mood/affect, oriented x 3 ICD10 Worksheet Patient Problems: Problems Problem Status Onset AMPUTATION PELVIS Acute
[2018-02-15] MEDS: LOSARTAN POTASSIUM 25 MG TAB PO SCH (22:02)
[2018-02-15] MEDS: GABAPENTIN 100 MG CAP PO SCH (22:04)
[2018-02-16] MEDS: oxyCODONE IR 5 MG TAB PO PRN ×6 (00:45→23:13)
[2018-02-16] MEDS: CEPHALEXIN 500 MG CAP PO SCH ×5 (00:46→23:13)
[2018-02-16] MEDS: ENOXAPARIN 40 MG/0.4 ML SYR SC SCH (08:41)
[2018-02-16] MEDS: SENNOSIDES/DOCUSATE SODIUM TAB PO SCH ×2 (08:42→20:57)
[2018-02-16] MEDS: morphINE SR 15 MG TAB PO SCH ×2 (08:42→20:57)
[2018-02-16] MEDS: POLYETHYLENE GLYCOL 3350 17 GM PKT PO SCH (08:42)
[2018-02-16] MEDS: MULTIVITAMINS 1 EACH TAB PO SCH (08:42)
[2018-02-16] MEDS: ASCORBIC ACID 500 MG TAB PO SCH (08:42)
[2018-02-16] MEDS: SILVER SULFADIAZINE TP SCH ×2 (08:43→22:14)
--- NOTE | 2018-02-16 11:21 | SOAPPROG ---
SOAP Progress Note Assessment/Plan: Assessment: Debility, status post hemipelvectomy. * Initial functional independence measure 90 on 02/14/2018. Independent with bed mobility and with squat pivot transfers. Ambulated 150 ft with contact guard to minimal assist using bilateral forearm crutches. He shows occasional loss of balance. He climbed and descended 12 stairs with bilateral crutches and contact guard assist. He accomplished a car transfer with standby assist. Decreased endurance and decreased standing balance. Staff has safety concerns regarding impulsive movements. He required supervision and setup for upper body and lower body dressing. Grooming and hygiene were done standing. She bathed seated by sponge bath at the sink. * Continue PT and OT to optimize mobility and activities of daily living. Pain management. Continue medications ordered upon hospital discharge with morphine extended release 15 mg p.o. twice daily and oxycodone 10-20 mg p.o. q.4 hours p.r.n. Acetaminophen is also ordered at 650 mg q.6 hours p.r.n. Pain medications can be adjusted or tapered as needed during his stay. He is also on celecoxib 200 mg twice daily. Hypertension. * Hydralazine was discontinued 02/15/2018 and losartan initiated at 25 mg at HS. Continuing amlodipine 10 mg q.day. Adequate blood pressure control. Walker catheter with possible neurogenic bladder and presence of nephrostomy tube. He will follow up with Urology 03/05/2018, at the [facility]. Prophylaxis. The DVT that he had suffered prior to surgery was removed with his left leg and he is on prophylactic anticoagulation with enoxaparin. DISPOSITION: Lives alone in a multilevel house with multiple steps to enter. Intends to return to work. Needs to achieve full functional independence. Discharge date set for 02/18/2018. FOLLOW-UP. He has followup scheduled with orthopedic surgeon, Dr. Ace on , and with Urology 03/05/2018. 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 He also reports that the surgeon felt that he excised the whole tumor with clean margins. 02/16/18 11:19 Subjective: No complaints. Pain adequately controlled. Anxious for discharge, as he reports that he has been in and out of hospitals for 6 weeks now. Objective: Vital Signs Temp Pulse Resp BP Pulse Ox 36.2 C 74 14 132/78 H 96 02/16/18 07:39 02/16/18 06:10 02/16/18 07:39 02/16/18 08:42 02/16/18 07:39 Laboratory Results 02/12/18 06:45 02/12/18 06:45 02/15/18 02/16/18 02/17/18 05:59 05:59 05:59 Intake Total 1400 2090 200 Output Total 1907 3343 Balance -2818 -1199 200 Physical Exam - Physical Exam General Appearance: WD/WN, alert, no apparent distress Respiratory: No respiratory distress, No accessory muscle use Skin: normal color, warm/dry Neuro/Psych: no motor/sensory deficits, alert, normal mood/affect, oriented x 3 ICD10 Worksheet Patient Problems: Problems Problem Status Onset AMPUTATION PELVIS Acute
[2018-02-16] MEDS: GABAPENTIN 100 MG CAP PO SCH (20:54)
[2018-02-16] MEDS: LOSARTAN POTASSIUM 25 MG TAB PO SCH (20:54)
[2018-02-17] MEDS: CEPHALEXIN 500 MG CAP PO SCH ×4 (05:22→23:48)
[2018-02-17] MEDS: oxyCODONE IR 5 MG TAB PO PRN ×5 (05:35→23:48)
[2018-02-17] MEDS: morphINE SR 15 MG TAB PO SCH ×2 (08:46→19:44)
[2018-02-17] MEDS: ENOXAPARIN 40 MG/0.4 ML SYR SC SCH (08:46)
[2018-02-17] MEDS: ASCORBIC ACID 500 MG TAB PO SCH (08:47)
[2018-02-17] MEDS: POLYETHYLENE GLYCOL 3350 17 GM PKT PO SCH (09:04)
[2018-02-17] MEDS: SENNOSIDES/DOCUSATE SODIUM TAB PO SCH ×2 (09:04→19:43)
[2018-02-17] MEDS: SILVER SULFADIAZINE TP SCH ×2 (09:05→19:44)
[2018-02-17] MEDS: MULTIVITAMINS 1 EACH TAB PO SCH (09:45)
--- NOTE | 2018-02-17 14:01 | SOAPPROG ---
SOAP Progress Note Assessment/Plan: Assessment: Debility, status post hemipelvectomy. * Initial functional independence measure 90 on 02/14/2018. Independent with bed mobility and with squat pivot transfers. Ambulated 150 ft with contact guard to minimal assist using bilateral forearm crutches. He shows occasional loss of balance. He climbed and descended 12 stairs with bilateral crutches and contact guard assist. He accomplished a car transfer with standby assist. Decreased endurance and decreased standing balance. Staff has safety concerns regarding impulsive movements. He required supervision and setup for upper body and lower body dressing. Grooming and hygiene were done standing. She bathed seated by sponge bath at the sink. * Has since ambulated with front wheeled walker 200 ft with modified independence and with forearm crutches to 100 ft standby assist to modified independence. Has climbed and descended 18 steps. * Continue PT and OT to optimize mobility and activities of daily living. Pain management. Continue medications ordered upon hospital discharge with morphine extended release 15 mg p.o. twice daily and oxycodone 10-20 mg p.o. q.4 hours p.r.n. Acetaminophen is also ordered at 650 mg q.6 hours p.r.n. He is also on celecoxib 200 mg twice daily. Hypertension. * Hydralazine was discontinued 02/15/2018 and losartan initiated at 25 mg at HS. Continuing amlodipine 10 mg q.day. Adequate blood pressure control. Walker catheter with possible neurogenic bladder and presence of nephrostomy tube. He will follow up with Urology 03/05/2018, at the [facility]. Prophylaxis. The DVT that he had suffered prior to surgery was removed with his left leg and he is on prophylactic anticoagulation with enoxaparin. Mobility has improved and there is no need to continue enoxaparin. Will discontinue starting 02/18/2018. DISPOSITION: Lives alone in a multilevel house with multiple steps to enter. Intends to return to work. Needs to achieve full functional independence. Discharge date set for 02/18/2018. FOLLOW-UP. He has followup scheduled with orthopedic surgeon, Dr. Ace on , and with Urology 03/05/2018. 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 He also reports that the surgeon felt that he excised the whole tumor with clean margins. 02/17/18 13:59 Subjective: No complaints. Says he used extra oxycodone yesterday because of desire to sleep overnight. He says he wants to reduce his use. He does not like the constipation. Objective: Vital Signs Temp Pulse Resp BP Pulse Ox 36.8 C 77 16 131/81 H 96 02/17/18 05:39 02/17/18 05:39 02/17/18 05:39 02/17/18 05:39 02/17/18 05:39 Laboratory Results 02/12/18 06:45 02/12/18 06:45 02/16/18 02/17/18 02/18/18 05:59 05:59 05:59 Intake Total 2090 200 600 Output Total 8384 1719 650 Balance -1197 -1519 -50 Physical Exam - Physical Exam General Appearance: WD/WN, alert, no apparent distress Respiratory: No respiratory distress, No accessory muscle use, No decreased breath sounds Skin: normal color, warm/dry Neuro/Psych: no motor/sensory deficits, alert, normal mood/affect, oriented x 3 ICD10 Worksheet Patient Problems: Problems Problem Status Onset AMPUTATION PELVIS Acute
[2018-02-17] MEDS: LOSARTAN POTASSIUM 25 MG TAB PO SCH (19:43)
[2018-02-17] MEDS: GABAPENTIN 100 MG CAP PO SCH (19:43)
[2018-02-18] MEDS: CEPHALEXIN 500 MG CAP PO SCH ×2 (05:33→11:42)
[2018-02-18] MEDS: oxyCODONE IR 5 MG TAB PO PRN ×2 (05:33→09:58)
[2018-02-18 08:23] VITALS: BP 135/78
[2018-02-18] MEDS: SENNOSIDES/DOCUSATE SODIUM TAB PO SCH (08:24)
[2018-02-18] MEDS: ASCORBIC ACID 500 MG TAB PO SCH (08:24)
[2018-02-18] MEDS: POLYETHYLENE GLYCOL 3350 17 GM PKT PO SCH (08:24)
[2018-02-18] MEDS: morphINE SR 15 MG TAB PO SCH (08:25)
[2018-02-18] MEDS: ENOXAPARIN 40 MG/0.4 ML SYR SC SCH (08:25)
[2018-02-18] MEDS: MULTIVITAMINS 1 EACH TAB PO SCH (08:25)
[2018-02-18] MEDS: SILVER SULFADIAZINE TP SCH (09:30)
--- NOTE | 2018-02-18 10:03 | PDOREHIP ---
Admission [facility] - Admission - 3 Day Assessment Period Admission Date/Day 1: 02/11/18 Day 2: 02/12/18 Day 3: 02/13/18 - Active Diagnoses Comorbidities and Co-existing Conditions at Admission: [id number]. None of the Above Discharge [facility] - Discharge - 3 Day Assessment Period 2 Days Prior to Anticipated Discharge Date: 02/16/18 1 Day Prior to Anticipated Discharge Date: 02/17/18 Anticipated Discharge Date: 02/18/18 - Discharge Skin Conditions Unhealed Pressure Ulcer (1 or more/Stage 1 or >)-Discharge: 0. No # Stage 1 Pressure Ulcers-Discharge: 0 # Stage 2 Pressure Ulcers-Discharge: 0 # of These Stage 2 Pressure Ulcers Present on Admission: 0 # Stage 3 Pressure Ulcers-Discharge: 0 # of These Stage 3 Pressure Ulcers Present on Admission: 0 # Stage 4 Pressure Ulcers-Discharge: 0 # of These Stage 4 Pressure Ulcers Present on Admission: 0 # Unstageable Pressure Ulcers (Non-remove Dress)-Discharge: 0 # These Unstageable Pressure Ulcers (NRD)-Present on Admit: 0 # Unstageable Pressure Ulcers (Slough/Eschar)-Discharge: 0 # These Unstageable Pressure Ulcers(Slough) Present on Admit: 0 # Unstageable Pressure Ulcers (Deep Tissue Injury)-Discharge: 0 # These Unstageable Pressure Ulcers (DTI) Present on Admit: 0
--- NOTE | 2018-02-18 12:14 | GDS ---
ADMITTING DIAGNOSIS: Debility status post left hemipelvectomy and leg amputation. DISCHARGE DIAGNOSIS: Debility status post left hemipelvectomy and leg amputation. OTHER DISCHARGE DIAGNOSES: 1. Pain management. 2. Hypertension. 3. Possible neurogenic bladder. COMPLICATIONS: There were none. CONSULTATIONS: There were none. PROCEDURES: There were none. 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 The pelvic mass had caused urinary obstruction and compression of the bladder and rectum, and he had postobstructive renal failure. A nephrostomy tube was placed. 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 He had postoperative issues regarding pain control. Otherwise, he was medically stabilized and appropriate for inpatient rehabilitation. He did very well in rehabilitation. His initial functional independence measure on 02/14/2018 was 90, which is consistent with assisted living level of care, needing contact guard to minimal assist for ambulation using forearm crutches, and contact guard assist for stairs. He subsequently was able to ambulate 200 feet with a front-wheeled walker with modified independence and 100 feet with forearm crutches with standby assist to modified independence. He climbed and descended 18 stairs. He had achieved independence with all activities of daily living as well as modified independence with kitchen and laundry tasks. He had considerable pain. He was prescribed morphine extended release 15 mg twice daily and oxycodone 10-20 mg p.o. q.4 hours p.r.n. He used as much as 100 mg of oxycodone in a day. On the day before discharge, his total oxycodone use was 70 mg. He was instructed regarding tapering rather than stopping opiates abruptly. He had wound dressing changes every other day. Wound remained well approximated with sutures in place. There was minimal drainage and no signs or symptoms of infection. He continued to have drains. Drain #2 had much reduced output to less than 30 cc per day on 2 consecutive days, and so it is removed on the day of discharge. Drain #[address] 2 days prior to discharge, output was 45 cc and the morning of discharge, the previous 24 hour output was 25 cc. Regarding hypertension, when admitted he was on hydralazine 50 mg t.i.d. as well as amlodipine 10 mg daily, hydralazine was discontinued, and losartan was initiated at 25 mg q.h.s. His blood pressure was subsequently well controlled. DISCHARGE PLAN: Discharge disposition is to home. Condition is good. Activity is ad rylee, but he is not to be driving while on opiates and until cleared by his surgeon. Diet is regular. MEDICATIONS ON DISCHARGE: 1. Amlodipine 10 mg p.o. q. day. 2. Celecoxib 200 mg p.o. b.i.d. 3. Cephalexin 500 mg p.o. q.6 hours as long as drains remain in place. 4. Gabapentin 200 mg p.o. q.h.s. 5. Losartan 25 mg p.o. q.h.s. 6. Morphine SR 50 mg p.o. b.i.d. 7. Oxycodone 5-20 mg p.o. q.4 hours p.r.n. 8. Senna/docusate 1 p.o. q. day. 9. Sulfadiazine to incision that is not covered with dressing b.i.d. ISSUES TO BE ADDRESSED AT FOLLOWUP: 1. Mobility. He will have home PT and OT. 2. Postsurgical followup. He will have nurse visit for dressing changes and potentially to remove the drain if drain output slows down sufficiently. He is to follow up with his surgeon, Dr. Robert Ace at [facility]. 3. Presence of Walker catheter and left nephrostomy tube with possible urinary retention. He will follow up with Urology [facility]. 4. Pain management and hypertension. He will follow up with his primary care provider, Dr. Ihsan Bills on 02/23/2018. Copy requested to: [facility] Dr. Robert Ace [facility] /[id number]/MODL MTDD
== END 2018-02-18 12:17 | disposition home health service (06) | DRG 561 ==
LOC: BREH 14:54
PROVIDERS: ADMIT Internal Medicine; ATTEND Internal Medicine
DX: Z47.81 Encounter for orthopedic aftercare following surgical amputation (principal); Z48.3 Aftercare following surgery for neoplasm; Z85.830 Personal history of malignant neoplasm of bone; R33.9 Retention of urine, unspecified; D64.89 Other specified anemias; I10 Essential (primary) hypertension; Z86.718 Personal history of other venous thrombosis and embolism; Z79.01 Long term (current) use of anticoagulants
CPT/HCPCS: 97110-GO; 97110-GP; 97116-GP; 97161-GP; 97166-GO; 97530-GO; 97530-GP; 97535-GO; 97542-GP; G0008; G0009; J1650